=== PATIENT | female | born 1975 | race Caucasian/White ===

== ENCOUNTER 2016-08-24 19:18 | Emergency (ER) | payer BC ==
[~2016-08-24] VITALS: Ht 157.5 cm; Wt 75.7 kg
[2016-08-24 20:30] VITALS: BP 121/76
== END 2016-08-24 20:30 | disposition home or self-care (01) ==
LOC: ED 19:18
DX: N39.0 Urinary tract infection, site not specified (principal); K58.9 Irritable bowel syndrome, unspecified; E66.9 Obesity, unspecified; F41.9 Anxiety disorder, unspecified

== ENCOUNTER 2018-08-02 08:18 | Emergency (ER) | payer BC ==
[~2018-08-02] VITALS: Ht 157.5 cm; Wt 72.1 kg
[2018-08-02 08:44] VITALS: Ht 157.5 cm; Wt 72.1 kg
[2018-08-02 09:47] LABS: BASOPHIL % 0.6 % (0-2); PLATELET COUNT 315 x10^3mcL (130-400); RED CELL DISTRIBUTION WIDTH 13.4 % (11.5-14.5)
[2018-08-02 10:00] LABS: CALCIUM 9.3 mg/dL (8.5-10.1); CARBON DIOXIDE 28.7 mmol/L (21-32); CHLORIDE SERUM 102 mmol/L (98-107); CREATININE SERUM 0.7 mg/dL (0.6-1.0); GFR1 > 60 mL/min; GLUCOSE SERUM 101 mg/dL (74-106); POTASSIUM SERUM 3.9 mmol/L (3.5-5.1); SODIUM SERUM 139 mmol/L (136-145)
[2018-08-02 10:05] LABS: ALBUMIN 3.8 g/dL (3.4-5.0); ALKALINE PHOSPHATASE 51 U/L (46-116); ALT/SGPT 25 U/L (14-59); AST/SGOT 8 U/L (15-37); BILIRUBIN TOTAL 0.26 mg/dL (0.20-1.00); LIPASE 75 IU/L (73-393); TOTAL PROTEIN, SERUM 7.1 g/dL (6.4-8.2)
[2018-08-02 11:20] VITALS: BP 114/68
== END 2018-08-02 11:27 | disposition home or self-care (01) ==
LOC: ED 08:18
PROVIDERS: Emergency Medicine
DX: N83.209 Unspecified ovarian cyst, unspecified side (principal); F41.9 Anxiety disorder, unspecified
CPT/HCPCS: 36415

== ENCOUNTER 2019-05-25 12:36 | Emergency (ER) | payer BC ==
[~2019-05-25] VITALS: Ht 157.5 cm; Wt 74.8 kg
[2019-05-25 12:47] VITALS: Ht 157.5 cm; Wt 74.8 kg
[2019-05-25 12:58] LABS: BASOPHIL % 0.3 % (0-2); PLATELET COUNT 309 x10^3mcL (130-400); RED CELL DISTRIBUTION WIDTH 13.1 % (11.5-14.5)
[2019-05-25 13:16] LABS: CALCIUM 9.2 mg/dL (8.5-10.1); CARBON DIOXIDE 30.2 mmol/L (21-32); CHLORIDE SERUM 105 mmol/L (98-107); CREATININE SERUM 0.9 mg/dL (0.6-1.0); GFR1 > 60 mL/min; GLUCOSE SERUM 120 mg/dL (74-106); POTASSIUM SERUM 4.6 mmol/L (3.5-5.1); SODIUM SERUM 141 mmol/L (136-145)
[2019-05-25 13:21] LABS: ALBUMIN 4.2 g/dL (3.4-5.0); ALKALINE PHOSPHATASE 64 U/L (46-116); ALT/SGPT 35 U/L (14-59); AST/SGOT 18 U/L (15-37); BILIRUBIN TOTAL 0.38 mg/dL (0.20-1.00); TOTAL PROTEIN, SERUM 7.9 g/dL (6.4-8.2)
[2019-05-25 20:38] LABS: CHOLESTEROL/HDL RATIO 4.2
[2019-05-25 20:48] LABS: T3 TOTAL 1.52 ng/mL
[2019-05-25 21:17] LABS: FREE T4 1.13 ng/dL (0.76-1.46); FREE THYROXINE INDEX 2.8 ug/dL (1.4-4.5); T4(THYROXINE) 10.5 ug/dL (4.7-13.3)
[2019-05-25 21:34] VITALS: BP 123/84
== END 2019-05-25 21:34 | disposition left against medical advice (07) ==
LOC: ED 12:36 → MU 19:58 → EDBEDREQ 19:59 → ED 21:34
PROVIDERS: Family Medicine
DX: N83.202 Unspecified ovarian cyst, left side (principal); M79.7 Fibromyalgia; R19.00 Intra-abdominal and pelvic swelling, mass and lump, unspecified site; Z98.84 Bariatric surgery status
CPT/HCPCS: 84439; J2270; J2405; J3010; J7030